=== PATIENT | female | born 2000 | race Caucasian/White ===

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

== ENCOUNTER 2020-01-07 21:18 | Emergency (ER) | payer OTHER ==
[~2020-01-07] VITALS: Ht 160 cm; Wt 77.3 kg
[2020-01-07] MEDS ORDERED: LORAZEPAM0.5 M1 PO (23:02)
[2020-01-07] MEDS ORDERED: KETOROLAC10 MG PO (23:02)
[2020-01-07] MEDS ORDERED: AZESCO TABLET1 EACH PO (23:11)
[2020-01-07] MEDS ORDERED: QUALITY CHOICE600 M1 PO (23:12)
[2020-01-07 23:16] VITALS: BP 117/79
== END 2020-01-07 23:16 | disposition home or self-care (01) ==
LOC: ED 21:18
DX: M54.5 Low back pain (principal)
CPT/HCPCS: J1885

== ENCOUNTER → 2020-04-20 | Outpatient (CLI) | payer MEDICAID ==
[~2020-04-20] MED LIST changes: +AZESCO TABLET1 EACH PO; +KETOROLAC10 MG PO; +LORAZEPAM0.5 M1 PO; +QUALITY CHOICE600 M1 PO
[2020-04-20 08:56] LABS: POTASSIUM 4.3 mmol/L (3.5-5.1)
[2020-04-20 08:57] LABS: ALBUMIN 4.2 g/dL (3.5-5.0)
[2020-04-20 08:58] LABS: CALCIUM 9.2 mg/dL (8.3-10.5)
[2020-04-20 08:59] LABS: TOTAL PROTEIN 7.2 g/dL (6.4-8.3)
[2020-04-20 09:01] LABS: TOTAL BILIRUBIN 0.2 mg/dL (0.2-1.2)
[2020-04-20 09:40] LABS: EOS # 0.2 (0.04-0.40); EOS % 3.2 % (1.0-5.0); HEMATOCRIT 37.5 % (37.0-47.0); HEMOGLOBIN 11.4 g/dL (12.5-16.0); MEAN CELL VOLUME 84 fl (78-100); MEAN CORPUSCULAR HEMOGLOBIN 25 pg (27-31); MEAN CORPUSCULAR HGB CONC 30 g/dL (33-37); MONO # 0.6 (0.20-0.80); NEU # 4.7 (1.40-6.50); PLATELET COUNT 384 K/mm3 (130-400); RED BLOOD COUNT 4.49 M/mm3 (4.10-5.30); RED CELL DISTRIBUTION WIDTH 17.9 % (11.5-14.5); WHITE BLOOD COUNT 7.5 K/mm3 (4.8-10.8)
[2020-04-20 09:49] LABS: ERYTHROCYTE SEDIMENTATION RATE 22 mm/hr (0-20)
== END ==
LOC: LAB 08:36
PROVIDERS: Physician Assistant
DX: Z76.89 Persons encountering health services in other specified circumstances (principal); R55 Syncope and collapse; F32.9 Major depressive disorder, single episode, unspecified; F41.9 Anxiety disorder, unspecified; H53.9 Unspecified visual disturbance; M62.9 Disorder of muscle, unspecified; Z86.69 Personal history of other diseases of the nervous system and sense organs

== ENCOUNTER 2020-11-11 19:02 | Emergency (ER) | payer MEDICAID ==
[2020-11-11] MEDS ORDERED: VITAMIN C500 M6 PO (19:22)
[2020-11-11] MEDS ORDERED: IRON90 MG PO (19:23)
[2020-11-11 20:03] LABS: URINE APPEARANCE CLOUDY; URINE BILIRUBIN NEGATIVE (NEGATIVE); URINE BLOOD 250 ery/uL (NEGATIVE); URINE COLOR YELLOW; URINE GLUCOSE NEGATIVE (NEGATIVE); URINE KETONE NEGATIVE (NEGATIVE); URINE LEUKOCYTE ESTERASE 1+ (NEGATIVE); URINE NITRATE NEGATIVE (NEGATIVE); URINE PROTEIN(semi-quant) TRACE mg/dL (NEGATIVE); URINE UROBILINOGEN NORMAL (NORMAL); URINE WBC >50 /hpf (0-3)
[2020-11-11 20:04] LABS: URINE MUCUS PRESENT (NOT PRESENT)
[2020-11-11] MEDS ORDERED: SEPTRA DS 8001 TAB PO (20:13)
[2020-11-11 20:23] VITALS: BP 126/94
== END 2020-11-11 20:23 | disposition home or self-care (01) ==
LOC: ED 19:02
PROVIDERS: Family Medicine
DX: N30.91 Cystitis, unspecified with hematuria (principal)

== ENCOUNTER 2020-12-22 20:57 | Emergency (ER) | payer MEDICAID ==
[~2020-12-22 20:57] MED LIST changes: +IRON90 MG PO; +SEPTRA DS 8001 TAB PO; +VITAMIN C500 M6 PO
[2020-12-22 22:55] LABS: ALBUMIN 3.8 g/dL (3.5-5.0); POTASSIUM 3.7 mmol/L (3.5-5.1)
[2020-12-22 22:57] LABS: CALCIUM 8.6 mg/dL (8.3-10.5); EOS # 0.3 (0.04-0.40); EOS % 3.3 % (1.0-5.0); HEMATOCRIT 38.2 % (37.0-47.0); HEMOGLOBIN 11.7 g/dL (12.5-16.0); LYMPH# 1.9 (1.50-4.00); MEAN CELL VOLUME 92 fl (78-100); MEAN CORPUSCULAR HEMOGLOBIN 28 pg (27-31); MEAN CORPUSCULAR HGB CONC 31 g/dL (33-37); MEAN PLATELET VOLUME 9.7 fl (7.4-10.4); MONO # 0.9 (0.20-0.80); NEU # 5.8 (1.40-6.50); PLATELET COUNT 359 K/mm3 (130-400); RED BLOOD COUNT 4.17 M/mm3 (4.10-5.30); RED CELL DISTRIBUTION WIDTH 14.8 % (11.5-14.5)
[2020-12-22 22:58] LABS: TOTAL PROTEIN 6.8 g/dL (6.4-8.3)
[2020-12-22 23:00] LABS: TOTAL BILIRUBIN 0.2 mg/dL (0.2-1.2)
[2020-12-22 23:28] LABS: URINE APPEARANCE HAZY; URINE COLOR DK YELLOW; URINE GLUCOSE NEGATIVE (NEGATIVE); URINE KETONE NEGATIVE (NEGATIVE); URINE PROTEIN(semi-quant) NEGATIVE (NEGATIVE)
[2020-12-22 23:29] LABS: URINE BILIRUBIN NEGATIVE (NEGATIVE); URINE BLOOD 50 ery/uL (NEGATIVE); URINE LEUKOCYTE ESTERASE NEGATIVE (NEGATIVE); URINE NITRATE NEGATIVE (NEGATIVE); URINE UROBILINOGEN NORMAL (NORMAL)
[2020-12-22 23:30] LABS: URINE MUCUS PRESENT (NOT PRESENT)
[2020-12-22] MEDS ORDERED: ZOFRAN ODT4 MG PO (23:33)
[2020-12-23 00:01] VITALS: BP 122/75
== END 2020-12-23 00:04 | disposition home or self-care (01) ==
LOC: ED 20:57
PROVIDERS: Family Medicine
DX: A08.4 Viral intestinal infection, unspecified (principal); M54.9 Dorsalgia, unspecified; Z86.16 Personal history of COVID-19; Z87.74 Personal history of (corrected) congenital malformations of heart and circulatory system

== ENCOUNTER 2021-07-20 16:15 | Emergency (ER) | payer MEDICAID ==
[~2021-07-20 16:15] MED LIST changes: +ZOFRAN ODT4 MG PO
[2021-07-20 17:03] LABS: BASO # 0.02 K/mm3 (0.02-0.10); EOS # 0.15 K/mm3 (0.04-0.40); EOS % 1.2 % (1.0-5.0); HEMATOCRIT 38.6 % (37.0-47.0); HEMOGLOBIN 12.4 g/dL (12.5-16.0); LYMPH# 1.62 K/mm3 (1.50-4.00); MEAN CELL VOLUME 86 fl (78-100); MEAN CORPUSCULAR HEMOGLOBIN 28 pg (27-31); MEAN CORPUSCULAR HGB CONC 32 g/dL (33-37); MEAN PLATELET VOLUME 9.5 fl (7.4-10.4); MONO # 0.74 K/mm3 (0.20-0.80); NEU # 9.82 K/mm3 (1.40-6.50); PLATELET COUNT 379 K/mm3 (130-400); RED BLOOD COUNT 4.48 M/mm3 (4.10-5.30); RED CELL DISTRIBUTION WIDTH 14.3 % (11.5-14.5); WHITE BLOOD COUNT 12.4 K/mm3 (4.8-10.8)
[2021-07-20 17:07] LABS: ALBUMIN 3.9 g/dL (3.5-5.0); POTASSIUM 4.2 mmol/L (3.5-5.1)
[2021-07-20 17:08] LABS: CALCIUM 9.3 mg/dL (8.3-10.5)
[2021-07-20 17:09] LABS: TOTAL PROTEIN 6.9 g/dL (6.4-8.3)
[2021-07-20 17:11] LABS: TOTAL BILIRUBIN 0.3 mg/dL (0.2-1.2)
[2021-07-20 18:46] VITALS: BP 120/72
== END 2021-07-20 18:51 | disposition home or self-care (01) ==
LOC: ED 16:15
PROVIDERS: Family Medicine
DX: O99.281 Endocrine, nutritional and metabolic diseases complicating pregnancy, first trimester (principal); E86.9 Volume depletion, unspecified; Z3A.01 Less than 8 weeks gestation of pregnancy
CPT/HCPCS: J7040

== ENCOUNTER → 2021-08-07 | Outpatient (CLI) | payer MEDICAID | LOC: RAD 07:30 | DX: Z33.1 Pregnant state, incidental (principal); Z3A.11 11 weeks gestation of pregnancy ==

== ENCOUNTER 2021-09-28 11:16 | Emergency (ER) | payer MEDICAID ==
[2021-09-28 12:50] VITALS: BP 130/80
== END 2021-09-28 12:38 | disposition home or self-care (01) ==
LOC: ED 11:16
DX: O99.282 Endocrine, nutritional and metabolic diseases complicating pregnancy, second trimester (principal); E86.9 Volume depletion, unspecified; Z3A.18 18 weeks gestation of pregnancy

== ENCOUNTER → 2021-11-08 | Outpatient (CLI) | payer MEDICAID ==
[2021-11-08 16:37] LABS: D-DIMER 1.01 mg/L FEU (0.15-0.50)
== END ==
LOC: LAB 15:24
PROVIDERS: Nurse Practitioner
DX: Z33.1 Pregnant state, incidental (principal); M79.605 Pain in left leg

== ENCOUNTER → 2021-11-26 | Outpatient (CLI) | payer MEDICAID ==
[2021-11-26 12:43] LABS: BASO # 0.01 K/mm3 (0.02-0.10); EOS # 0.15 K/mm3 (0.04-0.40); EOS % 0.9 % (1.0-5.0); HEMATOCRIT 33.5 % (37.0-47.0); HEMOGLOBIN 10.5 g/dL (12.5-16.0); MEAN CELL VOLUME 84 fl (78-100); MEAN CORPUSCULAR HEMOGLOBIN 26 pg (27-31); MEAN CORPUSCULAR HGB CONC 31 g/dL (33-37); MEAN PLATELET VOLUME 9.7 fl (7.4-10.4); MONO # 0.93 K/mm3 (0.20-0.80); NEU # 13.42 K/mm3 (1.40-6.50); PLATELET COUNT 427 K/mm3 (130-400); RED BLOOD COUNT 3.97 M/mm3 (4.10-5.30); RED CELL DISTRIBUTION WIDTH 15.4 % (11.5-14.5); WHITE BLOOD COUNT 16.4 K/mm3 (4.8-10.8)
[2021-11-26 12:47] LABS: ALBUMIN 3.4 g/dL (3.5-5.0); POTASSIUM 4.1 mmol/L (3.5-5.1)
[2021-11-26 12:50] LABS: TOTAL PROTEIN 6.9 g/dL (6.4-8.3)
[2021-11-26 12:52] LABS: TOTAL BILIRUBIN 0.3 mg/dL (0.2-1.2)
[2021-11-26 15:51] LABS: PH-URINE 5.5 (5.0 - 8.0); URINE APPEARANCE HAZY; URINE COLOR YELLOW
[2021-11-26 15:52] LABS: URINE BILIRUBIN NEGATIVE (NEGATIVE); URINE BLOOD TRACE (NEGATIVE); URINE KETONE 1+ (NEGATIVE); URINE LEUKOCYTE ESTERASE 1+ (NEGATIVE); URINE MUCUS PRESENT (NOT PRESENT); URINE NITRATE POSITIVE (NEGATIVE); URINE PROTEIN(semi-quant) NEGATIVE (NEGATIVE); URINE UROBILINOGEN NORMAL (NORMAL)
[2021-11-26 21:39] LABS: T3 FREE 2.8 pg/mL (1.7-3.7)
== END ==
LOC: LAB 12:13
PROVIDERS: Nurse Practitioner Family
DX: R35.0 Frequency of micturition (principal); R53.83 Other fatigue